=== PATIENT | female | born 1945 | race Caucasian/White ===

== ENCOUNTER → 2018-08-16 | Outpatient (REF) | payer MEDICARE, BC ==
[~2018-08-16] MED LIST: ACTOS30 MG PO; AMIODARONE200 MG PO; APRESOLINE25 MG/TAB PO; ASPIRIN LOW DOS81 M2 PO; BACTRIM DS1 TAB PO; BYETTA10 SC; CAPOTEN50 MG PO; CIPROFLOXACN250 MG PO; COREG3.125 MG PO; DILTIAZEM240 M1 PO; DILTIAZEM240 MG PO; DOCUSATE CAL240 MG PO; GLYCOLAX3350 N1 PO; HYDROCHLORO25 MG/TAB PO; HYDROCHLOROT50 MG PO; IMDUR30 MG PO; KEFLEX500 M1 PO; LANTUS100 MG/ML SC; LIPITOR40 MG PO; MECLIZINE25 MG PO; METFORMIN500 MG PO; METOPROL TAR25 MG PO; MULTAQ400 MG PO; NITROSTAT0.4 MG SL; NORCO1 TA1 PO; NORVASC2.5 MG PO; NOVOLOG100 IU/1 M SC; PLAVIX75 MG PO; PROTONIX40 MG PO; SENNA8.6 M1 PO; SIMVASTATIN10 MG PO; XANAX0.25 MG PO; catapres PO
[2018-08-16 09:48] LABS: URINE BILIRUBIN - DIPSTICK NEGATIVE (NEGATIVE); URINE BLOOD DIPSTICK TRACE-INTACT (NEGATIVE); URINE COLOR YELLOW; URINE GLUCOSE - DIPSTICK NEGATIVE (NEGATIVE); URINE KETONE NEGATIVE (NEGATIVE); URINE LEUK ESTERASE MODERATE (Negative); URINE NITRITE - DIPSTICK POSITIVE (Negative); URINE PROTEIN - DIPSTICK 30 mg/dL (NEG-TRACE); URINE SPECIFIC GRAVITY 1.015; URINE UROBILINOGEN - DIPSTICK 0.2 E.U./dL (0.2)
[2018-08-16 09:56] LABS: URINE CLARITY SL CLOUDY
[2018-08-16 10:03] LABS: HEMATOCRIT 32.5 % (37.0-47.0); HEMOGLOBIN 10.5 g/dl (12.0-16.0); IMMATURE GRANULOCYTES 0.6 % (0.0-5.0); MEAN CORPUSCULAR HGB 29.4 pG CALC (26.0-32.0); MEAN CORPUSCULAR HGB CONC 32.3 g/L CALC (32.0-36.0); NEUT# 4.26 thou/uL (2.00-7.15); RED BLOOD COUNT 3.57 mill/uL (4.20-5.60); RED CELL DISTRI WIDTH 16.8 % (11.5-15.5)
[2018-08-16 10:05] LABS: URINE WBC 50-100 WBC/hpf (0-5)
[2018-08-16 10:06] LABS: URINE BACTERIA MODERATE hpf; URINE SQUAMOUS EPITHELIAL CELL FEW EPI/hpf (0-FEW)
[2018-08-16 10:09] LABS: ALBUMIN 3.9 g/dL (3.2-5.0); CREATININE 2.4 mg/dL (0.5-1.0); POTASSIUM 4.7 mmol/l (3.5-5.1)
[2018-08-16 10:18] LABS: BILIRUBIN, TOTAL 0.4 mg/dL (0.0-1.4); CHOLESTEROL HDL RATIO 3.9 (<4.4 (CALC)); CREATININE 2.5 mg/dL (0.5-1.0); POTASSIUM 4.7 mmol/l (3.5-5.1); TOTAL PROTEIN 6.7 g/dL (6.3-8.2)
[2018-08-16 11:01] LABS: TSH, 3RD GENERATION 0.58 uIU/mL (0.47 - 4.68)
== END | disposition home or self-care (01) ==
LOC: LAB 08:45
PROVIDERS: Internal Medicine Nephrology; ATTEND Internal Medicine
DX: E03.9 Hypothyroidism, unspecified (principal); E11.65 Type 2 diabetes mellitus with hyperglycemia; E55.9 Vitamin D deficiency, unspecified; E78.49 Other hyperlipidemia; I10 Essential (primary) hypertension; N18.4 Chronic kidney disease, stage 4 (severe); D63.1 Anemia in chronic kidney disease; N25.81 Secondary hyperparathyroidism of renal origin

== ENCOUNTER 2022-09-25 13:35 | Emergency (ER) | payer MEDICARE ==
[~2022-09-25] VITALS: Ht 162.6 cm; Wt 97.2 kg
[2022-09-25 13:46] VITALS: BP 139/61
[2022-09-25 14:38] LABS: BASO% 0.5 % (0-3); EOS% 4.9 % (0-8); HEMATOCRIT 27.9 % (37.0-47.0); HEMOGLOBIN 8.9 g/dl (12.0-16.0); IMMATURE GRANULOCYTES 0.9 % (0.0-5.0); LYMPH% 14.7 % (15-41); MEAN CELL VOLUME 96.5 fL CALC (80.0-100.0); MEAN CORPUSCULAR HGB 30.8 pG CALC (26.0-32.0); MEAN CORPUSCULAR HGB CONC 31.9 g/dL CAL (32.0-36.0); MONO% 10.3 % (2-13); NEUT# 5.31 thou/uL (2.00-7.15); NEUT% 68.7 % (42-76); RED BLOOD COUNT 2.89 mill/uL (4.20-5.60); RED CELL DISTRI WIDTH 14.3 % (11.5-15.5)
[2022-09-25 14:54] LABS: BILIRUBIN, TOTAL 0.3 mg/dL (0.02-1.3); CREATININE 2.9 mg/dL (0.5-1.0); TOTAL PROTEIN 6.7 g/dL (6.3-8.2)
[2022-09-25 14:57] LABS: POTASSIUM 5.2 mmol/l (3.5-5.1)
[2022-09-25 15:31] VITALS: BP 134/59
[2022-09-25 15:45] VITALS: BP 146/63
[2022-09-25 16:45] VITALS: BP 152/52
[2022-09-25 16:50] VITALS: BP 152/52
== END 2022-09-25 17:07 | disposition home or self-care (01) ==
LOC: ED 13:35
PROVIDERS: Family Medicine
DX: M25.552 Pain in left hip (principal)